=== PATIENT | male | born 1995 | race Caucasian/White ===

== ENCOUNTER 2020-06-26 12:56 | Emergency (ER) | payer BC, SELFPAY ==
--- NOTE | 2020-06-26 13:08 | PC.NURSE ---
1302 pt informed staff he had no sick symptoms and decided not to be seen since he only needed a work note.
== END 2020-06-26 13:04 | disposition left against medical advice (07) ==
PROVIDERS: Emergency Provider Nurse Practitioner
DX: Z53.21 Procedure and treatment not carried out due to patient leaving prior to being seen by health care provider (principal)
CPT/HCPCS: 99199